=== PATIENT | male | born 1985 | race Caucasian/White ===

== ENCOUNTER 2018-10-01 12:09 | Emergency (ER) | payer BC ==
--- NOTE | 2018-10-01 12:20 | ER Document Report ---
ED Medical Screen (RME) - General Chief Complaint: Numbness Stated Complaint: LEFT SIDE BODY PAIN Time Seen by Provider: 10/01/18 12:17 Mode of Arrival: Wheelchair Information source: Patient - HPI Patient complains to provider of: L side numbness Onset: Just prior to arrival - pt . with acute onset of L side numbness while riding in car earlier this am. Also some facial numbness. No slurred speech
--- NOTE | 2018-10-01 12:38 | RADIOLOGY REPORT (SQ) ---
EXAM DESCRIPTION: CT HEAD WITHOUT COMPLETED DATE/TIME: 10/01/2018 12:25 pm REASON FOR STUDY: L side numbness COMPARISON: None. TECHNIQUE: Axial images acquired through the brain without intravenous contrast. Images reviewed wi th bone, brain and subdural windows. Images stored on PACS. All CT scanners at this facility use dose modulation, iterative reconstruction, and/or weight based d osing when appropriate to reduce radiation dose to as low as reasonably achievable (ALARA). [facility]: Dose Right [facility]: CareDose [facility]: Dose Right [facility]: Teradose 4D [facility]: [employer] Technologies RADIATION DOSE: CT Rad equipment meets quality standard of care and radiation dose reduction techniq ues were employed. CTDIvol: 53.2 mGy. DLP: 1017 mGy-cm. mGy. LIMITATIONS: None. FINDINGS: VENTRICLES: Normal size and contour. CEREBRUM: No masses. No hemorrhage. No midline shift. No evidence for acute infarction. Normal gra y/white matter differentiation. No areas of low density in the white matter. CEREBELLUM: No masses. No hemorrhage. No alteration of density. No evidence for acute infarction. EXTRAAXIAL SPACES: No fluid collections. No masses. ORBITS AND GLOBE: No intra- or extraconal masses. Normal contour of globe without masses. CALVARIUM: No fracture. PARANASAL SINUSES: Bilateral maxillary sinus fluid and diffuse mucosal thickening throughout the fron oral, ethmoid, and maxillary sinuses. SOFT TISSUES: No mass or hematoma. OTHER: No other significant finding. IMPRESSION: No acute intracranial findings. Acute on chronic sinusitis. EVIDENCE OF ACUTE STROKE: NO. COMMENT: Results were called to the emergency room physician Dr. Purcell at 1230 hours. Quality ID # [id number]: Final reports with documentation of one or more dose reduction techniques (e.g., Au tomated exposure control, adjustment of the mA and/or kV according to patient size, use of iterative reconstruction technique) TECHNICAL DOCUMENTATION: JOB ID: [id number] [place]-72 2010 [employer]- All Rights Reserved Reading location - IP/workstation name: [email or web address]
--- NOTE | 2018-10-01 12:51 | RADIOLOGY REPORT (SQ) ---
EXAM DESCRIPTION: CHEST SINGLE VIEW COMPLETED DATE/TIME: 10/01/2018 12:42 pm REASON FOR STUDY: stroke alert COMPARISON: None. EXAM PARAMETERS: NUMBER OF VIEWS: One view. TECHNIQUE: Single frontal radiographic view of the chest acquired. RADIATION DOSE: NA LIMITATIONS: None. FINDINGS: LUNGS AND PLEURA: No opacities, masses or pneumothorax. No pleural effusion. MEDIASTINUM AND HILAR STRUCTURES: No masses. Contour normal. HEART AND VASCULAR STRUCTURES: Heart normal in size. Normal vasculature. BONES: No acute findings. HARDWARE: None in the chest. OTHER: No other significant finding. IMPRESSION: NO ACUTE RADIOGRAPHIC FINDING IN THE CHEST. TECHNICAL DOCUMENTATION: JOB ID: [id number] [email or web address]- All Rights Reserved Reading location - IP/workstation name: [email or web address]
[2018-10-01 13:14] LABS: ABSOLUTE EOSINOPHILS # (AUTO) 0.2 10^3/uL (0.0-0.6); ABSOLUTE LYMPHOCYTES (AUTO) 1.1 10^3/uL (0.5-4.7); ABSOLUTE MONOCYTES (AUTO) 0.8 10^3/uL (0.1-1.4); ABSOLUTE NEUT (AUTO) 3.8 10^3/uL (1.7-8.2); BASOPHILS % (AUTO) 0.8 % (0-2); HEMATOCRIT 44.8 % (37.9-51.0); HEMOGLOBIN 15.7 g/dL (13.5-17.0); LYMPHOCYTES % (AUTO) 18.1 % (13-45); MEAN CORPUSCULAR HEMOGLOBIN 30.4 pg (27.0-33.4); MEAN CORPUSCULAR VOLUME 87 fl (80-97); MONOCYTES % (AUTO) 14.2 % (3-13); PLATELET COUNT 159 10^3/uL (150-450); RED BLOOD COUNT 5.16 10^6/uL (4.35-5.55); RED CELL DISTRIBUTION WIDTH 13.3 % (11.5-14.0); SEGMENTED NEUTROPHILS % (AUTO) 63.9 % (42-78); TOTAL CELLS COUNTED % (AUTO) 100 %; WHITE BLOOD COUNT 5.9 10^3/uL (4.0-10.5)
[2018-10-01 13:31] LABS: ALANINE AMINOTRANSFERASE 24 U/L (21-72); ALBUMIN 4.6 g/dL (3.5-5.0); ALKALINE PHOSPHATASE 60 U/L (38-126); ANION GAP 12 (5-19); ASPARTATE AMINO TRANSFERASE 27 U/L (17-59); BILIRUBIN,DIRECT 0.3 mg/dL (0.0-0.4); BILIRUBIN,TOTAL 0.6 mg/dL (0.2-1.3); BLOOD UREA NITROGEN 8 mg/dL (7-20); CARBON DIOXIDE 26 mmol/L (22-30); CHLORIDE 101 mmol/L (98-107); GLUCOSE 90 mg/dL (75-110); POTASSIUM 4.2 mmol/L (3.6-5.0); SODIUM 138.8 mmol/L (137-145); TOTAL PROTEIN 7.7 g/dL (6.3-8.2)
--- NOTE | 2018-10-01 13:31 | ER Document Report ---
ED Neuro Symptoms/Deficit - General Mode of Arrival: Wheelchair Information source: Patient <JLAMIRA - Last Filed: 10/01/18 19:52> <ANALILIAJACKIENATALY - Last Filed: 10/01/18 20:09> - General Chief Complaint: Numbness Stated Complaint: LEFT SIDE BODY PAIN Time Seen by Provider: 10/01/18 12:17 Notes: 33-year-old male that presents to the emergency department today with complaints of "left body numbness". Patient states that he was riding in the car when his symptoms began stating he just "did not feel right" on the left side of his body and face but denies any focal weakness. Patient states he has had an associated headache and nausea. Patient denies a history of PEs, DVT, or history of clotting disorders. Patient denies any visual disturbances, chest pain, vomiting, diarrhea, or speech impairment. Patient states he has never had a CVA in the past. (AMIRA PARIKH) - Related Data Allergies/Adverse Reactions: Penicillins Allergy (Verified 10/01/18 12:47) Past Medical History - General Information source: Patient - Social History Smoking Status: Never Smoker Cigarette use (# per day): No Chew tobacco use (# tins/day): No Frequency of alcohol use: None Drug Abuse: None Lives with: Family Family History: Reviewed & Not Pertinent Patient has suicidal ideation: No Patient has homicidal ideation: No Renal/ Medical History: Denies: Hx Peritoneal Dialysis <AMIRA PARIKH - Last Filed: 10/01/18 19:52> Review of Systems - Review of Systems Constitutional: No symptoms reported EENT: denies: Blurred vision, Double vision Cardiovascular: denies: Chest pain Respiratory: No symptoms reported Gastrointestinal: See HPI, Nausea. denies: Diarrhea, Vomiting Genitourinary: No symptoms reported Male Genitourinary: No symptoms reported Musculoskeletal: No symptoms reported Skin: No symptoms reported Hematologic/Lymphatic: No symptoms reported Neurological/Psychological: See HPI, Headaches, Numbness, Tingling - Left-sided left-sided -: Yes All other systems reviewed and negative <AMIRA PARIKH - Last Filed: 10/01/18 19:52> Physical Exam <AMIRA PARIKH - Last Filed: 10/01/18 19:52> - Vital signs Vitals: Pulse Resp BP Pulse Ox 70 16 140/86 H 98 10/01/18 12:14 10/01/18 12:14 10/01/18 12:14 10/01/18 12:14 - Notes Notes: PHYSICAL EXAM GENERAL: Alert, interacts well. No acute distress. HEAD: Normocephalic, atraumatic. EYES: Pupils equal, round, and reactive to light. Extraocular movements intact. ENT: Oral mucosa moist, tongue midline. NECK: Full range of motion. Supple. Trachea midline. LUNGS: Clear to auscultation bilaterally, no wheezes, rales, or rhonchi. No respiratory distress. HEART: Regular rate and rhythm. No murmurs, gallops, or rubs. ABDOMEN: Soft, non-tender. Non-distended. Bowel sounds present in all 4 quadrants. No guarding, rigidity, or rebound. EXTREMITIES: Moves all 4 extremities spontaneously. No edema, radial and dorsalis pedis pulses 2/4 bilaterally. No cyanosis. NEUROLOGICAL: Alert and oriented x3. Normal speech. Cranial nerves II through XII grossly intact. Biceps and patellar DTRs 2+. Finger to nose test and [id number] test intact bilaterally. Sensation intact across entire body. PSYCH: Normal affect, normal mood. SKIN: Warm, dry, normal turgor. No rashes or lesions noted. (AMIRA PARIKH) Course - Laboratory Result Diagrams: 10/01/18 12:45 10/01/18 12:45 <AMIRA PARIKH - Last Filed: 10/01/18 19:52> - Laboratory Result Diagrams: 10/01/18 12:45 10/01/18 12:45 <NATALY ALDANA - Last Filed: 10/01/18 20:09> - Re-evaluation Re-evalutation: 10/01/18 18:44 CBC unremarkable, CMP unremarkable, chest x-ray shows no acute process, CT scan of the head shows no acute process, MRI was ordered given the lack of other explanation for his decreased sensation on his left hand side which is rapidly resolving. MRI is completely negative. Given the patient's age and lack of risk factors as well as lack of reproducible symptoms I find it very unlikely that this patient is having a TIA. Discussed with patient that he should return should his symptoms return, worsen or attempts. The MRI did find multiple air-fluid levels throughout his frontal and ethmoid and maxillary sinuses. Patient will be started on nasal saline rinses and nasal steroids. Given a [id number] prescription for antibiotics. (NATALY ALDANA) - Vital Signs Vital signs: Temp Pulse Resp BP Pulse Ox 98.5 F 86 17 125/83 100 10/01/18 19:27 10/01/18 19:27 10/01/18 15:00 10/01/18 19:27 10/01/18 19:27 - Laboratory Laboratory results interpreted by me: 10/01/18 12:45 Monocytes % 14.2 H Discharge <AMIRA PARIKH - Last Filed: 10/01/18 19:52> <NATALY ALDANA - Last Filed: 10/01/18 20:09> - Discharge Clinical Impression: left side paresthesias, Paresthesia Condition: Stable Disposition: HOME, SELF-CARE Additional Instructions: I do not know exactly what caused you to having some numbness on your left hand side. There is no evidence of a stroke. Your numbness is resolved. The MRI of your brain did incidentally show some signs of sinusitis. It is most likely viral. Please use nasal steroids. Please use nasal saline rinses such as a NetiPot or NeilMed Sinus Rinses. If you do not have improvement in your symptoms in the next 3-5 days please start taking antibiotics as prescribed until they are gone. Prescriptions: Doxycycline Hyclate 100 mg PO BID #14 capsule Mometasone Furoate [Nasonex] 1 spray NS Q12 #1 spray.pump Referrals: CARLYN BRITTON MD [NO LOCAL MD] - Follow up as needed Scribe Attestation: 10/01/18 20:09 I personally performed the services described in the documentation, reviewed and edited the documentation which was dictated to the scribe in my presence, and it accurately records my words and actions. (NATALY ALDANA) Scribe Documentation - Scribe Written by Nkechi:: Nkechi Sahu, 10/01/2018 192 acting as scribe for :: Zulema <AMIRA PARIKH - Last Filed: 10/01/18 19:52> ED NIH Stroke Scale - NIH Stroke Scale When completed:: Protocol *: 1. NIH scale should be completed with appropriate accompanying assessment tools. *: 2. The NIH should reflect what the patient is capable of doing and should not be coached by the clinician. 1a. Level of Consciousness: 0=Alert;keenly responsive -: 1=Drowsy -: 2=Obtunded -: 3=Coma/unresponsive or reflex to noxious stimuli. 1a. Responses: 0 1b. Orientation Questions: a. What month is it? -: b. How old are you? -: 0=Answers both questions correctly. -: 1=Answers one question correctly or patient is intubated or has orotracheal trauma. -: 2=Answers neither question correctly. 1b. Responses: 0 1c. Response to commands: a. Open and close eyes? -: b. Business Continuity Planning Director and release hand? -: Credit is given despite weakness. Demonstration of task is permitted. Substitute command if hands cannot be used. -: 0=Performs both tasks correctly -: 1=Performs one task correctly -: 2=Performs neither task correctly 1c. Responses: 0 2. Gaze: Establish eye contact and instruct patient to "Follow my finger" -: 0=Normal -: 1=Partial gaze palsy. Gaze is abnormal in one or both eyes, but where forced deviation or total gaze paresis is not present. -: 2=Forced deviation or total gaze paresis. 2. Responses: 0 3. Visual Chance: Sees fingers in all four quadrants. -: 0=No visual loss. -: 1=Partial hemianopsia. -: 2=Complete hemianopsia. -: 3=Bilateral hemianopsia (including Cortical blindness) 3. Responses: 0 4. Facial Movement: Instruct patient to: -: a. Show me your teeth -: b. Raise your eyebrows -: c. Close your eyes -: d. Smile -: 0=Normal symmetrical movement -: 1=Minor paralysis (flattened nasolabial fold, asymmetry on smiling). -: 2=Partial paralysis (total or near total paralysis of lower face). -: 3=Complete paralysis of upper and lower face 4. Responses: 0 5. Motor functions (left arm): Alternate sides and extend each arm with palms down (90 degrees if sitting or 45 degrees for supine). -: 0=No drift;limb holds for full 10 seconds. -: 1=Drift; limb holds but drifts down before full 10 seconds, but does not hit bed. -: 2=Some effort against gravity; limb cannot get to or maintain position. -: 3=No effort against gravity; limb falls. -: 4=No movement. -: UN=Amputation, joint fusion, explain in comments. 5. Responses (left arm): 0 5. Motor Functions (right arm): Alternate sides and extend each arm with palms down (90 degrees if sitting or 45 degrees for supine). -: 0=No drift;limb holds for full 10 seconds. -: 1=Drift; limb holds but drifts down before full 10 seconds, but does not hit bed. -: 2=Some effort against gravity; limb cannot get to or maintain position. -: 3=No effort against gravity; limb falls. -: 4=No movement. -: UN=Amputation, joint fusion, explain in comments. 5. Responses (right arm): 0 6. Motor Functions (left leg): With patient lying supine, alternate sides and extend each leg (30 degrees always while supine). -: 0=No drift, leg holds position for full 5 seconds -: 1=Drift; leg falls before full 5 seconds but does not hit bed. -: 2=Some effort against gravity, leg falls to bed but some effort against gravity. -: 3=No effort against gravity, leg falls to bed immediately. -: 4=No movement. -: UN=Amputation, joint fusion; explain in comments. 6. Responses (left leg): 0 6. Motor Functions (right leg): With patient lying supine, alternate sides and extend each leg (30 degrees always while supine). -: 0=No drift, leg holds position for full 5 seconds -: 1=Drift; leg falls before full 5 seconds but does not hit bed. -: 2=Some effort against gravity, leg falls to bed but some effort against gravity. -: 3=No effort against gravity, leg falls to bed immediately. -: 4=No movement. -: UN=Amputation, joint fusion; explain in comments. 6. Responses (right leg): 0 7. Limb Ataxia: With eyes open instruct patient to: -: a. "Touch your finger to your nose". -: b. "Touch your heel to your brownlee" -: 0=Absent -: 1=Present in one limb. -: 2=Present in two limbs. -: UN=Amputation or joint fusion; explain in comments. 7. Responses: 0 8. Sensory: Test sensation using pinprick or noxious stimuli. Test as many body parts as possible. -: 0=Normal;no sensory loss -: 1=Mile to moderate sensory loss (patient feels pin prick but is less sharp on affected side). -: 2=Severe or total sensory loss. 8. Responses: 0 9. Best Language: Instruct patient to: -: a. "Describe what you see in this picture." -: b. "Name the items in this picture." -: c. "Read these sentences." -: 0=No aphasia, normal -: 1=Mild to moderate aphasia. -: 2=Severe aphasia -: 3=Mute, global aphasia, no usable speech or auditory comprehension. 9. Responses: 0 10. Articulation, Dysarthia: Instruct patient to: -: "Read these words" or "Repeat these words" -: 0=Normal -: 1=Mild to moderate; patient may slur some words but can be understood without difficulty. -: 2=Severe; patients speech so slurred as to be unintelligible in the absence of dysphasia. -: UN=Intubated or other physical barrier, explain in comments. 10. Responses: 0 11. Extinction or inattention: 0=No abnormality -: 1= Visual, tactile, auditory, spatial, or personal inattention or extinction to bilateral simulation in one or the sensory modalities. -: 2=Profound molly-inattention or molly-inattention to more than one modality; does not recognize own hand. 11. Responses: 0 Total Score: 0 <NATALY ALDANA - Last Filed: 10/01/18 20:09>
--- NOTE | 2018-10-01 16:54 | RADIOLOGY REPORT (SQ) ---
EXAM DESCRIPTION: MRI HEAD WITHOUT COMPLETED DATE/TIME: 10/01/2018 4:05 pm REASON FOR STUDY: left sided whole body numbess COMPARISON: None. TECHNIQUE: Multiplanar imaging includes non-contrasted T1, T2, FLAIR, and diffusion with ADC map seq uences. Images stored on PACS. LIMITATIONS: None. FINDINGS: ANATOMY: No anomalies. Normal vascular flow voids. Pituitary fossa normal. CSF SPACES: Normal in size and contour. No hemorrhage. CEREBRUM: Sulci and gyri normal in size and contour. Normal white matter signal on FLAIR imaging. No evidence of hemorrhage, mass, or extraaxial fluid collection. POSTERIOR FOSSA: No signal alteration. No hemorrhage. No edema, masses or mass effect. Internal jm tory canals, cerebello-pontine angles, mastoids normal. DIFFUSION IMAGING: Negative for acute or sub-acute infarction. ORBITS: No masses. Globes normal. PARANASAL SINUSES: Bilateral maxillary sinus fluid levels. Mucosa thickened throughout the frontal, ethmoid, and maxillary sinuses. OTHER: No other significant finding. IMPRESSION: NORMAL MRI OF THE BRAIN WITHOUT INTRAVENOUS GADOLINIUM CONTRAST. Bilateral maxillary sinus fluid levels. Mucosa thickened throughout the frontal, ethmoid, and maxill samantha sinuses. EVIDENCE OF ACUTE STROKE: NO. TECHNICAL DOCUMENTATION: JOB ID: [id number] [place]-72 2010 [email or web address]- All Rights Reserved Reading location - IP/workstation name: [email or web address]
[2018-10-01 19:32] VITALS: BP 125/83
--- NOTE | 2018-10-01 23:53 | EKG REPORT ---
SEVERITY:- NORMAL ECG - SINUS RHYTHM : Confirmed by: Neisha Romero 01-Oct-2018 23:52:15
== END 2018-10-01 19:31 | disposition home or self-care (01) ==
LOC: ER 12:09
DX: R20.2 Paresthesia of skin (principal); R20.0 Anesthesia of skin; R51 Headache; R11.0 Nausea; Z88.0 Allergy status to penicillin
CPT/HCPCS: 36415; 70450; 70551; 71045; 80053; 85025; 93005; 93010; 99285